=== PATIENT | female | born 1955 | race Caucasian/White ===

== ENCOUNTER 2020-06-03 19:21 | Emergency (ER) | payer BC ==
[~2020-06-03] VITALS: Ht 152.4 cm; Wt 81.8 kg
[2020-06-03 19:24] VITALS: BP 143/86
[2020-06-03] MEDS ORDERED: diphenhydrAMINE 50 mg/ml inj IM ONE (20:20)
== END 2020-06-03 20:39 | disposition home or self-care (01) ==
LOC: ER 19:22
DX: L23.9 Allergic contact dermatitis, unspecified cause (principal); Z88.2 Allergy status to sulfonamides; Z88.5 Allergy status to narcotic agent; Z88.8 Allergy status to other drugs, medicaments and biological substances
CPT/HCPCS: 96372; 99283; J1200